=== PATIENT | male | born 1970 ===

== ENCOUNTER 2018-12-27 10:51 | Emergency (ER) | payer MEDICAID ==
[2018-12-27 10:59] VITALS: RESP 18; O2SAT 100
--- NOTE | 2018-12-27 11:04 | C.PDOC ---
History Of Present Illness 48 year old male presents to the ED complaining of abdominal pain ongoing for 1 month but worse for the last 3 days. Reports pain feels like a pressure and is intermittent but is becoming more constant and is worse at night. States pain is rated 2-3 currently in the ED. Pain is localized next to right umbilicus and does not radiate anywhere else. Reports good appetite and denies any nausea, vomiting, diarrhea, or fever. Reports he was seen by Dr. Hyde yesterday who referred him to the ED for further evaluation. Time Seen by Provider: 12/27/18 10:59 Chief Complaint (Nursing): Abdominal Pain History Per: Patient History/Exam Limitations: no limitations Onset/Duration Of Symptoms: Days, Intermittent Episodes Current Symptoms Are (Timing): Still Present Quality Of Discomfort: Pressure Associated Symptoms: denies: Fever, Chills, Nausea, Vomiting, Diarrhea Past Medical History Reviewed: Historical Data, Nursing Documentation, Vital Signs Vital Signs: Last Vital Signs Temp 98.8 F 12/27/18 10:53 Pulse 82 12/27/18 10:53 Resp 18 12/27/18 10:53 BP 128/84 12/27/18 10:53 Pulse Ox 100 12/27/18 10:53 Primary Care Provider: Piyush Hyde - Medical History PMH: No Chronic Diseases Surgical History: Back Surgery - [facility] Procedures TETANUS TOXOID ADMINIST (03/08/14) Family History: States: Diabetes, Hypertension - Social History Hx Alcohol Use: Yes (occasionally ) Hx Substance Use: No - Immunization History Hx Tetanus Toxoid Vaccination: Yes Hx Influenza Vaccination: No Hx Pneumococcal Vaccination: No Review Of Systems Except As Marked, All Systems Reviewed And Found Negative. Constitutional: Negative for: Fever, Chills Cardiovascular: Negative for: Chest Pain Gastrointestinal: Positive for: Abdominal Pain. Negative for: Nausea, Vomiting, Diarrhea Genitourinary: Negative for: Dysuria, Hematuria Physical Exam - Physical Exam Appears: Non-toxic, No Acute Distress Skin: Warm, Dry, No Rash Head: Normacephalic Eye(s): bilateral: Normal Inspection, PERRL, EOMI Nose: Normal Oral Mucosa: Moist Neck: Supple Chest: Symmetrical Cardiovascular: Rhythm Regular, No Murmur Respiratory: Normal Breath Sounds, No Rales, No Rhonchi, No Wheezing Gastrointestinal/Abdominal: Bowel Sounds (Normoactive ), Soft, Tenderness (Mild tenderness nex to right umbilicus), No Guarding, No Rebound Neurological/Psych: Oriented x3, Normal Speech Gait: Steady ED Course And Treatment - Laboratory Results Result Diagrams: 12/27/18 11:22 12/27/18 11:22 O2 Sat by Pulse Oximetry: 100 (RA) Pulse Ox Interpretation: Normal - CT Scan/US CT ABD/PEL Other Rad Studies (CT/US): Read By Radiologist, Radiology Report Reviewed CT/US Interpretation: Accession No. : [id number]. Patient Name / ID : SUGEY BRUNER / [id number]. Exam Date : 12/27/2018 13:12:00 ( Approved ). Study Comment : Sex / Age : M / 48Y. Creator : Shanthi Chung. Dictator : Gustavo Prado MD. Chief Digital Media Officer : Internet Retailer : Gustavo Prado MD. Approver2 : Report Date : 12/27/2018 13:21:08. My Comment : . Date of service: 12/27/2018. PROCEDURE: CT Abdomen and Pelvis with Oral contrast. HISTORY: c/o right sided abd pain. COMPARISON: None. TECHNIQUE: Contiguous axial images of the abdomen and pelvis. Oral contrast was administered. No IV contrast given. Coronal and Sagittal reformats generated. Radiation dose: Total exam DLP = 931.31 mGy-cm. This CT exam was performed using one or more of the following dose reduction techniques: Automated exposure control, adjustment of the mA and/or kV according to patient size, and/or use of iterative reconstruction technique. FINDINGS: LOWER THORAX: Unremarkable. LIVER: Unremarkable. No gross lesion or ductal dilatation. GALLBLADDER AND BILE DUCTS: Unremarkable. PANCREAS: Unremarkable. No mass. No ductal dilatation. SPLEEN: Unremarkable. No splenomegaly. ADRENALS: There is 1.5 centimeter nodule at the right adrenal gland. KIDNEYS AND URETERS: Unremarkable. No stone or hydronephrosis. BLADDER: Grossly unremarkable. REPRODUCTIVE: Unremarkable. APPENDIX: There is no evidence of appendicitis. BOWEL: Unremarkable. No obstruction. No gross mural thickening. PERITONEUM: Unremarkable. No fluid collection. No free air. LYMPH NODES: Unremarkable. No enlarged lymph nodes. VASCULATURE: Unremarkable. No aortic aneurysm. No aortic atherosclerotic calcification or mural plaque present. BONES: No fracture or destructive lesion. OTHER FINDINGS: None. IMPRESSION: No evidence of nephrolithiasis or hydronephrosis. No evidence of cholecystitis pancreatitis or appendicitis. 1.5 millimeter nodule at the right adrenal gland. Six months follow-up reassessment is dejesus ggested. Medical Decision Making Medical Decision Making: Initial Impression: Undifferentiated abd pain Initial Plan: - CT Abd/Pel - Bloodwork - Pepcid 20mg IVP - IV fluids - UA Progress note: 1:52 PM - CT with no acute findings. Pt feels better. Will d/c home. I informed pt of 1.5 mm nodule of right adrenal gland and importance of 6 month follow up. Disposition - Disposition Referrals: Piyush Hyde MD [Medical Doctor] - Disposition: HOME/ ROUTINE Disposition Time: 13:53 Condition: STABLE Additional Instructions: Mr. Rivas, thank you for letting us take care of you today. Return to the ER if your symptoms worsen, or if any problems. Continue taking the medication prescribed to you by Dr. Hyde. On your CAT scan, there was a 1.5 mm nodule of the right adrenal gland. It is important that you have a repeat CAT scan in about 6 months to re-evaluate this. It is important that you discuss this with Dr. Hyde. Instructions: Acute Abdomen (Belly Pain), Adult (DC) Forms: [employer] (Japanese) Print Language: MOLDOVAN - POA Present On Arrival: None - Clinical Impression Clinical Impression: Mass of right adrenal gland, Abdominal pain - Scribe Statement The provider has reviewed the documentation as recorded by the Patrickibsanthosh Espinal All medical record entries made by the Scribe were at my direction and personally dictated by me. I have reviewed the chart and agree that the record accurately reflects my personal performance of the history, physical exam, medical decision making, and the department course for this patient. I have also personally directed, reviewed, and agree with the discharge instructions and disposition.
[2018-12-27] MEDS ORDERED: Sodium Chloride 0.9% 1,000 ML IV ONE (11:08)
[2018-12-27] MEDS ORDERED: Iohexol 240 (50 ml) PO STA (11:08)
[2018-12-27 11:31] LABS: BASO # 0.1 K/uL (0.0-0.2); BASO % 0.6 % (0.0-2.0); EOS # 0.1 K/uL (0.0-0.7); EOS % 1.1 % (0.0-4.0); HEMOGLOBIN 15.3 g/dL (12.0-18.0); LYMPH # 2.7 K/uL (1.0-4.3); LYMPH % 23.7 % (20.0-40.0); MEAN CELL VOLUME 89.3 fL (80.0-94.0); MEAN CORPUSCULAR HGB CONC 33.6 g/dL (33.0-37.0); MEAN PLATELET VOLUME 7.9 fL (7.2-11.7); MONO # 0.7 K/uL (0.0-0.8); MONO % 6.5 % (0.0-10.0); NEUT # 7.7 K/uL (1.8-7.0); NEUT % 68.1 % (50.0-75.0); NRBC % 0.1 % (0.0-2.0); RBC 5.09 Mil/uL (4.40-5.90); RED CELL DISTRIBUTION WIDTH 14.7 % (11.5-14.5); WHITE BLOOD COUNT 11.3 K/uL (4.8-10.8)
[2018-12-27] MEDS ORDERED: Iohexol 240 (50 ml) ONE (11:40)
[2018-12-27] MEDS ORDERED: Sodium Chloride 0.9% 1,000 ML ONE (11:40)
[2018-12-27 11:42] LABS: ALB/GLOB RATIO 1.3 (1.0-2.1); ALBUMIN 3.9 g/dL (3.5-5.0); ALT/SGPT 25 U/L (21-72); AST/SGOT 21 U/L (17-59); BLOOD UREA NITROGEN 13 mg/dL (9-20); CALCIUM 9.1 mg/dl (8.6-10.4); GFR NON-AFRICAN AMERICAN > 60; LIPASE 135 U/L (23-300)
[2018-12-27 11:56] LABS: URINE BILIRUBIN NEGATIVE (NEGATIVE); URINE BLOOD NEGATIVE (NEGATIVE); URINE CLARITY Clear (Clear); URINE COLOR Yellow (YELLOW); URINE GLUCOSE (UA) NORMAL (Normal); URINE LEUKOCYTE ESTERASE NEG Leu/uL (Negative); URINE PROTEIN NEGATIVE (NEGATIVE)
[2018-12-27 12:58] VITALS: BP 142/85; PULSE 64; TEMP 98
--- NOTE | 2018-12-27 13:39 | CT ---
Date of service: 12/27/2018 PROCEDURE: CT Abdomen and Pelvis with Oral contrast. HISTORY: c/o right sided abd pain COMPARISON: None. TECHNIQUE: Contiguous axial images of the abdomen and pelvis. Oral contrast was administered. No IV contrast given. Coronal and Sagittal reformats generated. Radiation dose: Total exam DLP = 931.31 mGy-cm. This CT exam was performed using one or more of the following dose reduction techniques: Automated exposure control, adjustment of the mA and/or kV according to patient size, and/or use of iterative reconstruction technique. FINDINGS: LOWER THORAX: Unremarkable. LIVER: Unremarkable. No gross lesion or ductal dilatation. GALLBLADDER AND BILE DUCTS: Unremarkable. PANCREAS: Unremarkable. No mass. No ductal dilatation. SPLEEN: Unremarkable. No splenomegaly. ADRENALS: There is 1.5 centimeter nodule at the right adrenal gland. KIDNEYS AND URETERS: Unremarkable. No stone or hydronephrosis. BLADDER: Grossly unremarkable. REPRODUCTIVE: Unremarkable. APPENDIX: There is no evidence of appendicitis. BOWEL: Unremarkable. No obstruction. No gross mural thickening. PERITONEUM: Unremarkable. No fluid collection. No free air. LYMPH NODES: Unremarkable. No enlarged lymph nodes. VASCULATURE: Unremarkable. No aortic aneurysm. No aortic atherosclerotic calcification or mural plaque present. BONES: No fracture or destructive lesion. OTHER FINDINGS: None. IMPRESSION: No evidence of nephrolithiasis or hydronephrosis. No evidence of cholecystitis pancreatitis or appendicitis. 1.5 millimeter nodule at the right adrenal gland. Six months follow-up reassessment is suggested.
== END 2018-12-27 14:18 | disposition home or self-care (01) ==
LOC: C.ER 10:51
DX: E27.9 Disorder of adrenal gland, unspecified (principal); R10.9 Unspecified abdominal pain
CPT/HCPCS: 74176; 80053; 81001; 83690; 85025; 96374; 99285; J7030; Q9966